=== PATIENT | female | born 1995 | race Caucasian/White ===

== ENCOUNTER → 2023-04-09 | Outpatient (CLI) | payer OTHER | LOC: M WHC 06:45 | PROVIDERS: ATTEND Obstetrics & Gynecology | DX: Z34.92 Encounter for supervision of normal pregnancy, unspecified, second trimester (principal) ==

== ENCOUNTER → 2023-12-09 | Outpatient (REF) | payer OTHER | LOC: M LAB REF 12:32 | PROVIDERS: ATTEND Physician Assistant | DX: J02.9 Acute pharyngitis, unspecified (principal) ==

== ENCOUNTER 2025-01-28 00:13 | Day surgery (SDC) | payer OTHER ==
[~2025-01-28] VITALS: Ht 172.7 cm; Wt 65.9 kg
[2025-01-28] MEDS: PIPERACILLIN/TAZOBACTAM SOD 3.375 GM in DEXTROSE 5% (D5W) ADV/MINI-BAG 50 ML IV ONE (02:27)
[2025-01-28] MEDS: metroNIDAZOLE 500 MG in IV 1 EA IV ONE (02:52)
[2025-01-28] MEDS ORDERED: LIDOCAINE 2% 100 MG/5 ML SDV (FOR ANES.) As Ordered ONE (03:20)
[2025-01-28] MEDS ORDERED: ONDANSETRON 4MG 2ML VIAL As Ordered ONE (03:20)
[2025-01-28] MEDS ORDERED: dexAMETHasone 4 MG/ML 1 ML VIAL As Ordered ONE (03:20)
[2025-01-28] MEDS ORDERED: MIDAZOLAM INJ 2 MG/2 ML VIAL As Ordered ONE (03:22)
[2025-01-28] MEDS: LR 1,000 ML IV SCH (03:31)
[2025-01-28] MEDS ORDERED: ACETAMINOPHEN 1000MG/100ML IV BAG As Ordered ONE (04:05)
[2025-01-28] MEDS ORDERED: PHENYLephrine 500MCG 5ML (100MCG/ML) SYRINGE As Ordered ONE (04:09)
[2025-01-28] MEDS ORDERED: HYDROMORPHONE HCL 0.5 MG/0.5 ML SYRINGE IV PRN (04:10)
[2025-01-28] MEDS ORDERED: LR 1,000 ML IV SCH (04:10)
[2025-01-28] MEDS ORDERED: ONDANSETRON 4MG 2ML VIAL IV PRN (04:10)
[2025-01-28] MEDS ORDERED: OXYTOCIN INJ 10UNITS/ML 1ML VIAL As Ordered ONE (04:15)
[2025-01-28] MEDS ORDERED: TRANEXAMIC ACID 100 MG/ML 10ML VIAL As Ordered ONE (04:20)
[2025-01-28 05:30] VITALS: BP 109/57; TEMP 98.2; O2SAT 98
[2025-01-28 06:00] VITALS: BP 102/55; TEMP 98.1; O2SAT 98
[2025-01-28] MEDS ORDERED: IBUPROFEN 400 MG TAB PO PRN (06:05)
[2025-01-28 06:30] VITALS: BP 102/58; TEMP 98.9; O2SAT 98
[2025-01-28 07:00] VITALS: BP 106/55; TEMP 97.4; O2SAT 98
== END 2025-01-28 08:00 | disposition home or self-care (01) ==
LOC: M ED 00:13 → M SDC 03:28 → M PED 05:26 → M SDC 08:00
PROVIDERS: ATTEND Obstetrics & Gynecology
DX: O02.1 Missed abortion (principal); F17.210 Nicotine dependence, cigarettes, uncomplicated
CPT/HCPCS: 59820; 76856; 86850; 86900; 86901; 88305; 99284; J0131; J1100; J1836; J2250; J2371; J2405; J2543; J2590; J3010

== ENCOUNTER → 2025-03-09 | Outpatient (REF) | payer OTHER ==
[2025-03-09 20:19] LABS: APPEARANCE, URINE CLEAR (CLEAR); BACTERIA, URINE AUTO NEGATIVE (NEGATIVE); BILIRUBIN, URINE AUTO NEGATIVE (NEGATIVE); BLOOD, URINE BLOOD 2+ (NEGATIVE); GLUCOSE, URINE (UA) AUTO NEGATIVE (NEGATIVE); KETONE, URINE AUTO NEGATIVE (NEGATIVE); LEUKOCYTE ESTERASE, URINE AUTO NEGATIVE (NEGATIVE); NITRITE, URINE AUTO NEGATIVE (NEGATIVE); PROTEIN, URINE AUTO NEGATIVE (NEGATIVE); RBC, URINE AUTO 2 /HPF (0-3); SPECIFIC GRAVITY URINE AUTO 1.005 (1.002-1.035); SQUAMOUS EPITHELIAL CELL UR AU 1 /HPF (0-6); UROBILINOGEN, URINE AUTO 0.2 mg/dL (0.0-2.0); WBC, URINE AUTO 1 /HPF (0-3)
== END ==
LOC: M LAB REF 19:54
PROVIDERS: ATTEND Physician Assistant
DX: N39.0 Urinary tract infection, site not specified (principal)